=== PATIENT | male | born 1970 | race Caucasian/White ===

== ENCOUNTER 2022-12-05 19:22 | Emergency (ER) | payer BC ==
[2022-12-05 19:28] VITALS: BP 151/83; PULSE 103; RESP 20; TEMP 98.6
[2022-12-05] MEDS ORDERED: MORPHINE SULFATE 2 MG/ML SYRINGE IVP STA (20:49)
[2022-12-05] MEDS ORDERED: KETOROLAC 15 MG/ML 1 ML VIAL IVP STA (20:49)
--- NOTE | 2022-12-05 21:00 | ED ---
Skin/Abscess/FB HPI - General Chief complaint: Skin/Abscess/Foreign Body Stated complaint: infection Time Seen by Provider: 12/05/22 20:35 Source: patient, RN notes reviewed Mode of arrival: ambulatory Limitations: no limitations - History of Present Illness Initial comments: This is a 51-year-old male who presents to the emergency department for concerns of a right arm infection. States that today, he has developed increasing redness, pain, and warmth over the right elbow. He has several scratches on his arm, but not over this area in particular. Denies any history of similar problems in the past. States that the redness started at the elbow and has since started to spread. Denies any injuries. Denies any fevers or chills. - Related Data Previous Rx's Medication Instructions Recorded Cephalexin [Keflex] 500 mg PO Q6HR 10 Days #40 cap 12/05/22 Ibuprofen [Motrin] 800 mg PO Q8H PRN #30 tab 12/05/22 Sulfamethox-Tmp 800-160Mg [Bactrim 1 tab PO Q12HR 10 Days #20 tab 12/05/22 DS 800-160 mg] Allergies Allergy/AdvReac Type Severity Reaction Status Date / Time Penicillins Allergy Unknown Verified 12/05/22 19:28 Childhood Review of Systems ROS Statement: Those systems with pertinent positive or pertinent negative responses have been documented in the HPI. ROS Other: All systems not noted in ROS Statement are negative. Past Medical History Past Medical History: No Reported History History of Any Multi-Drug Resistant Organisms: None Reported Past Surgical History: No Surgical Hx Reported Past Psychological History: No Psychological Hx Reported Smoking Status: Never smoker Past Alcohol Use History: Daily Past Drug Use History: None Reported General Exam Limitations: no limitations General appearance: alert, in no apparent distress Head exam: Present: atraumatic, normocephalic, normal inspection Respiratory exam: Present: normal lung sounds bilaterally. Absent: respiratory distress, wheezes, rales, rhonchi, stridor Cardiovascular Exam: Present: regular rate, normal rhythm, normal heart sounds. Absent: systolic murmur, diastolic murmur, rubs, gallop, clicks Extremities exam: Present: other (Erythema, heat, tenderness, and swelling over the right olecranon bursa and spreading distally. Full ROM, however this does induce pain. 2+ radial pulses. Capillary refill less than 1 second.) Neurological exam: Present: alert, oriented X3, CN II-XII intact Psychiatric exam: Present: normal affect, normal mood Course Vital Signs 12/05/22 19:26 Temperature 98.6 F Pulse Rate 103 H Respiratory 20 Rate Blood Pressure 151/83 O2 Sat by Pulse 98 Oximetry Medical Decision Making - Medical Decision Making This is a 51-year-old male who presents to the emergency department for right arm pain. Was pt. sent in by a medical professional or institution? @ -No Did you speak to anyone other than the patient for history? @ -No Did you review nursing and triage notes? @ -Yes, and I agree, it is accurate with regards to the patient's symptoms. Were old charts reviewed? @ -No Differential Diagnosis? @ -Differential Arm Pain: Fracture, contusion, cellulitis, DVT, arterial occlusion, this is not meant to be an all-inclusive list. EKG interpreted by me (3pts min.)? @ -Not obtained X-rays interpreted by me (1pt min.)? @ -X-ray of the right elbow obtained. My interpretation identifies soft tissue swelling. CT interpreted by me (1pt min.)? @ -Not obtained U/S interpreted by me (1pt. min.)? @ -Not obtained What testing was considered but not performed? (CT, X-rays, U/S, labs)? Why? @ -None What meds were considered but not given? Why? @ -None Did you discuss the management of the patient with other professionals? @ -No Did you reconcile home meds? @ -No Was smoking cessation discussed for >3mins.? @ -No Was critical care preformed (if so, how long)? @ -No Were there social determinants of health that impacted care today? How? (Homelessness, low income, unemployed, alcoholism, drug addiction, transportation, low edu. Level, literacy, decrease access to med. care, shelter, rehab)? @ -No Was there de-escalation of care discussed even if they declined? (Discuss DNR or withdrawal of care, Hospice)? @ -No What co-morbidities impacted this encounter? (DM, HTN, Smoking, COPD, CAD, Cancer, CVA, Hep., AIDS, mental health diagnosis, sleep apnea, morbid obesity)? @ -None Was patient admitted / discharged? @ -Discharged. Lab work obtained revealing leukocytosis and a mild elevation in CRP at 1.2. Elevated liver enzymes are consistent with the patient's history of alcohol abuse. X-ray obtained revealing mild soft tissue swelling. While the patient's nurse did not update his vital signs, his heart rate improved and remained in the 70s-80s while in the emergency department. Patient did still have full range of motion of the right arm. We discussed possibilities such as infectious bursitis versus traumatic bursitis. When discussing disposition options, we discussed antibiotics, drainage of fluid for further evaluation of possible infection, or admission for IV antibiotics. Patient requested to start with outpatient antibiotics. Prescription for Bactrim and Keflex provided with dosing instructions reviewed. Initial doses administered in the emergency department. He was also given a prescription for Ibuprofen for pain management. The area of erythema was also marked with a skin marker and he was given very strict return parameters. Undiagnosed new problem with uncertain prognosis? @ -None Drug Therapy requiring intensive monitoring for toxicity (Heparin, Nitro, Insulin, Cardizem)? @ -None Were any procedures done? @ -None Diagnosis/symptom? @ -Right olecranon bursitis Acute, or Chronic, or Acute on Chronic? @ -Acute Uncomplicated (without systemic symptoms) or Complicated (systemic symptoms)? @ -Uncomplicated Side effects of treatment? @ -None Exacerbation, Progression, or Severe Exacerbation] @ -Not applicable Poses a threat to life or bodily function? @ -No Return precautions reviewed in depth, the patient is instructed to return to the emergency department with any new, worsening, or concerning symptoms. Patient verbalized understanding. This case was discussed in detail with the attending ED physician, Dr. Kennedy. Presentation, findings, and treatment plan discussed in detail as well. - Lab Data Result diagrams: 12/05/22 21:43 12/05/22 21:43 Lab Results 12/05/22 12/05/22 12/05/22 Range/Units 21:43 21:43 21:43 WBC 13.4 H (3.8-10.6) k/uL RBC 3.69 L (4.30-5.90) m/uL Hgb 13.2 (13.0-17.5) gm/dL Hct 36.6 L (39.0-53.0) % MCV 99.3 (80.0-100.0) fL MCH 35.7 H (25.0-35.0) pg MCHC 35.9 (31.0-37.0) g/dL RDW 14.4 (11.5-15.5) % Plt Count 166 (150-450) k/uL MPV 9.2 Neutrophils % 80 % Lymphocytes % 15 % Monocytes % 3 % Eosinophils % 2 % Basophils % 0 % Neutrophils # 10.7 H (1.3-7.7) k/uL Lymphocytes # 2.0 (1.0-4.8) k/uL Monocytes # 0.4 (0-1.0) k/uL Eosinophils # 0.2 (0-0.7) k/uL Basophils # 0.0 (0-0.2) k/uL Manual Slide Review Performed Macrocytosis Slight Sodium 132 L (137-145) mmol/L Potassium 3.9 (3.5-5.1) mmol/L Chloride 101 (98-107) mmol/L Carbon Dioxide 20 L (22-30) mmol/L Anion Gap 11 mmol/L BUN 9 (9-20) mg/dL Creatinine 0.97 (0.66-1.25) mg/dL Est GFR (CKD-EPI)AfAm >90 (>60 ml/min/1.73 sqM) Est GFR (CKD-EPI)NonAf >90 (>60 ml/min/1.73 sqM) Glucose 98 (74-99) mg/dL Plasma Lactic Acid Mauricio 1.1 (0.7-2.0) mmol/L Calcium 8.7 (8.4-10.2) mg/dL Total Bilirubin 2.3 H (0.2-1.3) mg/dL AST 150 H (17-59) U/L ALT 92 H (4-49) U/L Alkaline Phosphatase 315 H (38-126) U/L C-Reactive Protein 1.2 H (<1.0) mg/dL Total Protein 7.3 (6.3-8.2) g/dL Albumin 3.5 (3.5-5.0) g/dL - Radiology Data Radiology results: report reviewed, image reviewed Disposition Clinical Impression: Cellulitis, Olecranon bursitis of right elbow Disposition: HOME SELF-CARE Instructions (If sedation given, give patient instructions): Cellulitis (ED) Additional Instructions: Return to the emergency department with any new, worsening, or concerning symptoms. Take both antibiotics as prescribed for 10 days. Alternate with ibuprofen and Tylenol as needed for pain relief. Monitor the area marked in the purple marker. If it spreads a substantial amount or you develop fevers, increasing pain, or generally feel unwell, make sure you return to the emergency department immediately. Contact one of the primary care providers listed below to become established for ongoing medical management. Prescriptions: Sulfamethox-Tmp 800-160Mg [Bactrim DS 800-160 mg] 1 tab PO Q12HR 10 Days #20 tab Cephalexin [Keflex] 500 mg PO Q6HR 10 Days #40 cap Ibuprofen [Motrin] 800 mg PO Q8H PRN #30 tab PRN Reason: Pain Is patient prescribed a controlled substance at d/c from ED?: No Referrals: None,Stated [Primary Care Provider] - 1-2 days Forms: Area PCPs
--- NOTE | 2022-12-05 21:22 | XR ---
EXAMINATION TYPE: XR elbow complete RT DATE OF EXAM: 12/05/2022 COMPARISON: None HISTORY: Elbow redness and swelling TECHNIQUE: 3 view right elbow FINDINGS: Diffuse mild soft tissue swelling may be present. The anterior fat pad is normal. No elevation of the posterior fat pad is evident. Radius aligns erma lly with the humerus. No acute fracture or dislocation is evident. No cortical erosion is evident. IMPRESSION: 1. Suggestion of mild diffuse soft tissue swelling
[2022-12-05 22:24] LABS: Basophils % (A) 0 %; Eosinophils # (A) 0.2 k/uL (0-0.7); Eosinophils % (A) 2 %; HCT 36.6 % (39.0-53.0); HGB 13.2 gm/dL (13.0-17.5); Lymphocytes % (A) 15 %; MCH 35.7 pg (25.0-35.0); MCHC 35.9 g/dL (31.0-37.0); MCV 99.3 fL (80.0-100.0); Macrocytosis Slight; Mean Platelet Volume 9.2; Monocytes # (A) 0.4 k/uL (0-1.0); Monocytes % (A) 3 %; Neutrophils # (A) 10.7 k/uL (1.3-7.7); Neutrophils % (A) 80 %; Platelet Count 166 k/uL (150-450); RBC 3.69 m/uL (4.30-5.90); RDW 14.4 % (11.5-15.5); WBC 13.4 k/uL (3.8-10.6)
[2022-12-05 22:42] LABS: ALT 92 U/L (4-49); African American GFR (CKD) >90 (>60 ml/min/1.73 sqM); Anion Gap 11 mmol/L; Blood Urea Nitrogen 9 mg/dL (9-20); C Reactive Protein 1.2 mg/dL (<1.0); Calcium 8.7 mg/dL (8.4-10.2); Carbon Dioxide 20 mmol/L (22-30); Chloride 101 mmol/L (98-107); Glucose 98 mg/dL (74-99); Non-African American GFR(CKD) >90 (>60 ml/min/1.73 sqM); Sodium 132 mmol/L (137-145); Total Bilirubin 2.3 mg/dL (0.2-1.3)
[2022-12-05 22:47] LABS: Potassium 3.9 mmol/L (3.5-5.1)
[2022-12-05 22:48] LABS: AST 150 U/L (17-59); Albumin 3.5 g/dL (3.5-5.0); Alkaline Phosphatase 315 U/L (38-126); Total Protein 7.3 g/dL (6.3-8.2)
[2022-12-05] MEDS ORDERED: SULFAMETHOX-TMP 800-160MG 1 EACH TAB PO STA (23:26)
[2022-12-05] MEDS ORDERED: CEPHALEXIN 500 MG CAP PO STA (23:26)
[2022-12-05] MEDS ORDERED: IBUPROFEN 600 MG STARTER PACK 4 TAB BTL PO STA (23:27)
[2022-12-05] MEDS ORDERED: ACET/COD 300 MG/30 MG STARTER PACK 6 TAB BTL PO STA (23:27)
[2022-12-05] MEDS ORDERED: CEPHALEXIN 500MG STARTER PACK 4 CAP BTL PO STA (23:28)
[2022-12-05] MEDS ORDERED: SULFAMETH-TMP DS STARTER PACK 2 TAB BTL PO STA (23:28)
== END 2022-12-06 00:10 | disposition home or self-care (01) ==
LOC: EC 19:22
DX: M70.21 Olecranon bursitis, right elbow (principal); L03.113 Cellulitis of right upper limb; Z88.0 Allergy status to penicillin
CPT/HCPCS: 99283 ×2; 96374 ×2; 96375 ×2; 36415; 80053; 83605; 85025; 86140; 73080; J2270; J1885

== ENCOUNTER 2023-09-28 10:27 | Day surgery (SDC) | payer BC ==
[2023-09-28 10:50] VITALS: TEMP 97.9
[2023-09-28] MEDS: IV FLUID CONTINUATION 1,000 ML IV ONE (10:52)
[2023-09-28] MEDS: LACTATED RINGERS 1,000 ML IV SCH (10:52)
[2023-09-28] MEDS ORDERED: PROPOFOL 10 MG/ML 20 ML VIAL IV ONE (11:52)
--- NOTE | 2023-09-28 12:10 | P.PCN ---
Date of Procedure: 09/28/23 Procedure(s) Performed: BRIEF HISTORY: Patient is a 52-year-old pleasant white male scheduled for an elective colonoscopy as a part of screening for colon cancer. PROCEDURE PERFORMED: Colonoscopy biopsy. PREOPERATIVE DIAGNOSIS: Screening for colon cancer. IV sedation per Anesthesia. PROCEDURE: After informed consent was obtained, the patient, was brought into the endoscopy unit. IV sedation was administered by Anesthesia under continuous monitoring. Digital rectal examination was normal. Initially the Olympus CF-160 flexible video colonoscope was then inserted in the rectum, gradually advanced into the cecum without any difficulty. Careful examination was performed as the scope was gradually being withdrawn. Ileocecal valve and the appendiceal orifice were visualized and appeared normal. Prep was excellent. Mucosa of the cecum, ascending colon, transverse colon appeared normal. In the descending colon there was a 4 mm polyp that was removed by cold biopsy. There is scattered left-sided diverticulosis seen. Rest of the, descending colon, sigmoid colon, and rectum appeared normal. Retroflexion was performed in the rectum and no lesions were seen. The patient tolerated the procedure well. IMPRESSION: 4 mm descending colon polyp status post cold biopsy Scattered sigmoid diverticulosis RECOMMENDATIONS: Findings of this examination were discussed with the patient as well as his family. He was advised to follow-up with the biopsy results. If the biopsy reveals adenoma he can have repeat colonoscopy in 5 years.
[2023-09-28 12:32] VITALS: RESP 16
[2023-09-28 12:35] VITALS: BP 109/50; PULSE 100
== END 2023-09-28 13:03 | disposition home or self-care (01) ==
LOC: ORWHC2ENDO 10:27
PROVIDERS: ATTEND Internal Medicine Gastroenterology
DX: K57.30 Diverticulosis of large intestine without perforation or abscess without bleeding (principal); D12.4 Benign neoplasm of descending colon; E78.5 Hyperlipidemia, unspecified; Z88.0 Allergy status to penicillin; Z79.899 Other long term (current) drug therapy
CPT/HCPCS: 45380; J2704; 88305

== ENCOUNTER → 2023-12-05 | Outpatient (CLI) | payer BC ==
--- NOTE | 2023-12-05 10:11 | US ---
EXAMINATION TYPE: US carotid duplex BILAT DATE OF EXAM: 12/05/2023 COMPARISON: NONE CLINICAL INDICATION: Male, 52 years old with history of R55 SYNCOPE AND COLLAPSE; Exhaustion TECHNIQUE: Carotid duplex ultrasound examination. Indirect Doppler criteria was utilized. FINDINGS: EXAM MEASUREMENTS: RIGHT: Peak Systolic Velocity (PSV) cm/sec ----- Right CCA: 75 ----- Right ICA: 86 ----- Right ECA: 84 ICA/CCA ratio: 1.2 RIGHT: End Diastole cm/sec ----- Right CCA: 18 ----- Right ICA: 24 ----- Right ECA: 11 LEFT: Peak Systolic Velocity (PSV) cm/sec ----- Left CCA: 67 ----- Left ICA: 93 ----- Left ECA: 74 ICA/CCA ratio: 1.4 LEFT: End Diastole cm/sec ----- Left CCA: 17 ----- Left ICA: 29 ----- Left ECA: 15 VERTEBRALS (direction of flow): Right Vertebral: Antegrade Left Vertebral: Antegrade Rhythm: Normal [employer] NOTES: No intimal thickening or elevated velocities seen, plaque noted left CCA/ICA Bulb IMPRESSION: Less than 50% stenosis of the bilateral carotid bifurcation. Criteria for Assigning % of Stenosis / Diameter reduction (Estimation based on the indirect measurements of the internal carotid artery velocities (ICA PSV). 1. Normal (no stenosis)=ICA PSV < 125 cm/s: ratio < 2.0: ICA EDV<40 cm/s. 2. Less than 50% stenosis=ICA PSV < 125 cm/s: ratio < 2.0: ICA EDV<40 cm/s. 3. 50 to 69% stenosis=ICA PSV of 125 to 230 cm/s: ration 2.0 ? 4.0: ICA EDV 40-100 cm/s. 4. Greater than 70% stenosis to near occlusion= ICA PSV > 230 cm/s: ratio > 4.0: ICA EDV > 100 cm/s. 5. Near occlusion= ICA PSV velocities may be low or undetectable: variable ratio and ICA EDV. 6. Total occlusion=unable to detect flow. [facility], , 12/05/2023 10:08 AM
--- NOTE | 2023-12-07 21:46 | EEG ---
ELECTROENCEPHALOGRAM REPORT PREAMBLE: This is a 52-year-old male who had a syncopal episode. CURRENT MEDICATIONS: 1. Fish oil. 2. Statins. EEG FINDINGS: This is a 21-channel digital EEG recorded with video component, utilizing 10/20 international system with referential and bipolar montages. This is a prolonged EEG performed for 1 hour. Recording start time is 8:17 a.m. on 12/05/2023 and recording end time is 9:22 a.m. on 12/05/2023. The background consists of well-developed, moderately well regulated, mixed frequencies of 9 to 10 hertz alpha, with some fast frequency beta activity seen in bihemispheric region. Background is posterior dominant and seems to be reactive to eye opening and closing. Photic driving response was seen with some flash frequencies. There is frequent left temporal dysrhythmic theta and delta slowing seen frequently during the study. Drowsiness was seen with appearance of bilaterally symmetric theta frequency rhythm. Deeper stages of sleep were not clearly seen. No focal or generalized epileptiform activity was seen. IMPRESSION: This is an abnormal EEG due to the presence of frequent focal slowing involving the left temporal region. This is suggestive of focal cortical neuronal dysfunction, and may suggest underlying structural abnormality. Consider neuroimaging if not done previously. No focal or generalized epileptiform activity was seen. MMODL / IJN: [id number] / MTDDomonique
== END ==
LOC: NEUROMAIN 07:40
PROVIDERS: ATTEND Family Medicine
DX: R55 Syncope and collapse
CPT/HCPCS: 93880; 95813

== ENCOUNTER → 2023-12-24 | Outpatient (CLI) | payer BC ==
--- NOTE | 2023-12-24 11:01 | MR ---
EXAMINATION TYPE: MR brain wo/w con DATE OF EXAM: 12/24/2023 COMPARISON: NONE HISTORY: 53-year-old male R94.01, ABNORMAL EEG WITH SEIZURE ACTIVITY TECHNIQUE: Multiplanar, multisequence images of the brain and brainstem were acquired before and aft er administration of 5.5ml mL IV Gadavist. Diffusion weighted imaging is performed. FINDINGS: No evidence for acute infarction, hemorrhage, mass, mass effect, midline shift, herniation, effacemen t of basal cisterns, or extra-axial fluid collection. There is mild generalized supratentorial volume loss with a secondary mild prominence to the ventricu lar system. T2/FLAIR weighted sequences show only a couple foci of bright signal change in the subcortical region of the bifrontal lobes. Major intracranial flow voids are intact. Symmetric volume of the hippocampus and fornices. No groves matter heterotopia seen. Midline structures demonstrate normal morphology. The craniocervical junction is normal. Post contrast images demonstrate no evidence of pathologic enhancement. Dural venous sinuses are pat ent. Mild mucosal thickening ethmoid air cells. Leftward nasal septal deviation. Globes are intact. IMPRESSION: 1. Mild generalized atrophy. Mild ventricular prominence likely due to central cerebral atrophy. 2. Minimal burden of chronic small vessel ischemic disease. 3. No acute intracranial abnormality or enhancing intracranial lesions seen. [facility], , 12/24/2023 10:59 AM
== END | disposition home or self-care (01) ==
LOC: RADMRIMAIN 07:45
PROVIDERS: ATTEND Family Medicine
DX: G31.9 Degenerative disease of nervous system, unspecified (principal); R94.01 Abnormal electroencephalogram [EEG]; R56.9 Unspecified convulsions; I67.82 Cerebral ischemia
CPT/HCPCS: 70553